=== PATIENT | male | born 1970 | race Caucasian/White ===

== ENCOUNTER → 2024-02-17 | Outpatient (CLI) | payer BC, SELFPAY ==
[2024-02-17 18:35] LABS: Hepatitis B Surface Antibody Non-Reactive; Hepatitis B Surface Antigen Non-Reactive (Nonreactive)
[2024-02-18 15:24] LABS: Hepatitis C Antibody Non-Reactive (Nonreactive)
[2024-02-19 05:07] LABS: Hepatitis B Core Ab Total Negative (Negative); QNTFERON TB Mitogen Value > 10.00 IU/mL (.); QNTFERON TB Nil Value 0 IU/mL (.); QNTFERON TB1+ Ag Value 0.01 IU/mL (.); QNTFERON TB2+ Ag Value 0.01 IU/mL (.); QNTIFERON TB Positive Criteria Negative (Negative)
== END | disposition home or self-care (01) ==
LOC: MTLAB 14:14
DX: L40.0 Psoriasis vulgaris (principal); Z71.89 Other specified counseling
CPT/HCPCS: 36415; 86480; 86704; 86706; 86803; 87340